=== PATIENT | female | born 2000 | race Two or more races ===

== ENCOUNTER 2023-09-11 08:12 | Emergency (ER) | payer BC ==
--- OUTSIDE RECORDS SUMMARY | 2023-09-11 08:15 | XMS REPORT | Continuity of Care Document ---
Author Name Unknown Address [address] [facility] [address] [place] [address] [facility] Address [address] [facility] [address] [facility] 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 Name Role Phone Kayden Hoover Attending Clinician Unavailable Nia Muñiz Attending Clinician Unavailable Mini Hampton Attending Clinician Unavailable Payers Payer Name Policy Type Policy Number Effective Date Expirati on Date Source Ambetter from [facility] [id number] 2020 00:00:00 [facility] Ambetter from [facility] [id number] 2020 00:00:00 [facility] Problems Condition Name Condition Details Condition Category Status Onset Date Resolution Date Last Treatment Date Treating Clinician Comments Source [id number] Enlarged tonsils Problem Active [facility] Mixed anxiety and depressive disorder Depression with anxiety Problem Active [facility] Bipolar disorder Bipolar disorder Problem Active [facility] [id number] Oral contracept parveen pill surveillan ce Problem Active [facility] Social History Social Habit Start Date Stop Date Quantity Comments Source History of Tobacco Use Current Smoker [facility] Sex Assigned At [facility] Smoking Status Start Date Stop Date Source Current Smoker 2021-06-23 00:00:00 [facility] Medications Ordered Medication Name Filled Medication Name Start Date Stop Date Current Medication? Ordering Clinician Indication Dosage Frequency Signature (SIG) Comments Components Source Benzonatate 200 MG Benzonatate 200 MG 06-23 00:00: 00 07-07 00:00 :00 No 1{capsu le_as_n eeded} Benzonatat e 200 MG Azithromyci n 250 MG Azithromyci n 250 MG 06-23 00:00: 00 06-28 00:00 :00 No QD Azithromyc in 250 MG predniSONE 20 MG predniSONE 20 MG 2 00:00: 00 06-28 00:00 :00 No QD predniSONE 20 MG Neomycin-Po lymyxin-HC 3.5-46833-0 Neomycin-Po lymyxin-HC 3.5-38251-7 2 00:00: 00 No 4{drops _into_a ffected _ear} TID Neomycin-P olymyxin-H C 3.5-26957- 1 Neomycin-Po lymyxin-HC 3.5-33490-8 Neomycin-Po lymyxin-HC 3.5-13384-9 2- 00:00: 00 No 4{drops _into_a ffected _ear} TID Neomycin-P olymyxin-H C 3.5-66616- 1 Singulair 10 MG Singulair 10 MG 2- 00:00: 00 No 1{table t} QD Singulair 10 MG Fluticasone Propionate 50 MCG/ACT Fluticasone Propionate 50 MCG/ACT 2- 00:00: 00 No 2{spray s_in_ea ch_nost ril} BID Fluticason e Propionate 50 MCG/ACT Singulair 10 MG Singulair 10 MG 2- 00:00: 00 No 1{table t} QD Singulair 10 MG Fluticasone Propionate 50 MCG/ACT Fluticasone Propionate 50 MCG/ACT 2- 00:00: 00 No 2{spray s_in_ea ch_nost ril} BID Fluticason e Propionate 50 MCG/ACT Depo-Complaint Supervisor a (Medroxypro gesterone ac) Depo-Complaint Supervisor a (Medroxypro gesterone ac) 2019-04 00:00: 00 No [facility] Depo-Complaint Supervisor a (Medroxypro gesterone ac) Depo-Complaint Supervisor a (Medroxypro gesterone ac) 2019-04 00:00: 00 No [facility] Lessina Lessina 07-20 00:00: 00 Yes Mini Millender 1 tablet [facility] Mini Millender not defined [facility] No [facility] Depo-Complaint Supervisor a 150 MG/ML Depo-Complaint Supervisor a 150 MG/ML No 1{ml} Depo-Prove ra 150 MG/ML Ondansetron HCl 4 MG Ondansetron HCl 4 MG No 1{table t} Ondansetro n HCl 4 MG Lessina 0.1-20 MG-MCG Lessina 0.1-20 MG-MCG No 1{table t} QD Lessina 0.1-20 MG-MCG Latuda Latuda No Latuda Depo-Complaint Supervisor a 150 MG/ML Depo-Complaint Supervisor a 150 MG/ML No 1{ml} Depo-Prove ra 150 MG/ML Lessina 0.1-20 MG-MCG Lessina 0.1-20 MG-MCG No 1{table t} QD Lessina 0.1-20 MG-MCG Ondansetron HCl 4 MG Ondansetron HCl 4 MG No 1{table t} Ondansetro n HCl 4 MG Vital Signs Vital Name Observation Time Observation Value Comments S ource height 2021-06-23 08:50:00 67 [in_i] Commo n [facility] weight 2021-06-23 08:50:00 116 [lb_av] Comm on [facility] temperature 2021-06-23 08:50:00 98.3 [degF] Com mon [facility] bmi 2021-06-23 08:50:00 18.17 kg/m2 Comm on [facility] respiratory rate 2021-06-23 08:50:00 17 /min [facility] height 2021-01-20 09:40:00 67 [in_i] Commo n [facility] weight 2021-01-20 09:40:00 105 [lb_av] Comm on [facility] temperature 2021-01-20 09:40:00 97 [degF] Comm on [facility] bmi 2021-01-20 09:40:00 16.44 kg/m2 Comm on [facility] height 2020-12-30 11:00:00 67 [in_i] Commo n [facility] weight 2020-12-30 11:00:00 105.3 [lb_av] Co mmon [facility] temperature 2020-12-30 11:00:00 98.3 [degF] Com mon [facility] bmi 2020-12-30 11:00:00 16.49 kg/m2 Comm on [facility] oximetry 2020-12-30 11:00:00 95 % Commo n [facility] respiratory rate 2020-12-30 11:00:00 16 /min [facility] blood pressure systolic 2020-12-30 11:00:00 109 mm[Hg] [facility] blood pressure diastolic 2020-12-30 11:00:00 70 mm[Hg] [facility] Encounters Start Date/Time End Date/Time Encounter Type Admission Type Attending Clinicians Care Facility Care Department Encounter ID Source 2022-12-25 08:33:00 [id number] [facility] 2021-06-28 08:44:01 [facility] [id number] [facility] 2021-06-27 16:14:01 [facility] [id number] [facility] 2021-06-21 15:49:01 [facility] [id number] [facility] 2021-05-25 13:45:33 Outpatient Kayden Hoover [facility] [id number] [facility] 2021-05-25 13:40:43 Outpatient [facility] [id number] [facility] 2021-05-25 12:32:13 Outpatient Nia Muñiz [facility] [id number] [facility] 2021-05-25 12:03:58 Outpatient Mary Carmen Muñizli [facility] [id number] [facility] 2021-05-25 12:03:13 Outpatient Nia Muñiz [facility] [id number] [facility] 2021-05-25 12:02:39 Outpatient Nia Muñiz [facility] [id number] [facility] 2021-05-25 11:25:59 Outpatient Mini Hampton [facility] [id number] [facility] 2021-05-25 11:15:10 Outpatient Mini Hampton [facility] [id number] [facility] 2022-12-25 00:00:00 2022-12-25 00:00:00 (TEL) [facility] [id number] [facility] 2021-06-27 00:00:00 2021-06-27 00:00:00 (TEL) [facility] [id number] [facility] 2021-06-23 00:00:00 2021-06-23 00:00:00 OFFICE VISIT EST PT LEVEL 3 [facility] [id number] [facility] 2021-06-21 00:00:00 2021-06-21 00:00:00 (TEL) [facility] [id number] [facility] 2021-01-20 00:00:00 2021-01-20 00:00:00 OFFICE VISIT EST PT LEVEL 3 [facility] [id number] [facility] 2020-12-30 00:00:00 2020-12-30 00:00:00 PREV VISIT EST AGE 18-39 [facility] [id number] [facility] 2020-06-22 00:00:00 2020-06-22 00:00:00 Outpatient [facility] [id number] [facility] 2020-03-18 00:00:00 2020-03-18 00:00:00 Outpatient [facility] [id number] [facility] 2020-03-10 00:00:00 2020-03-10 00:00:00 Outpatient [facility] [id number] [facility] 2020-01-30 00:00:00 2020-01-30 00:00:00 Outpatient [facility] [id number] [facility] 2019-10-09 08:00:00 2019-10-09 08:00:00 Outpatient Tate morrison [facility] [id number] [facility]
[2023-09-11 08:43] LABS: Absolute Lymphocytes (CBC) 1.7 K/uL (0.7-4.9); Absolute Monocytes 0.6 K/uL (0.1-1.3); Absolute Neutrophil 2.7 K/uL (1.8-8.0); Basophils % 0.7 % (0-1.3); Hematocrit 43.1 % (36.0-45.0); Lymphocytes % 33.9 % (15.3-44.8); MCHC 32.6 g/dL (32.0-36.0); MCV 89.2 fL (80-100); MPV 8.3 fL (7.6-11.3); Monocytes % 11.8 % (3.3-12.3); Neutrophils % 52.6 % (41.7-73.7); Nucleated Red Blood Cells % 0.1 % (0-0); Platelets 272 thou/uL (152-406); RBC Red Blood Cell Count 4.83 M/uL (3.86-4.86); Red Cell Distribution Width 12.6 % (12.1-15.2)
[2023-09-11 09:13] LABS: Anion Gap 5.7 mEq/L (5.0-15.0); Potassium 3.7 mEq/L (3.5-5.1)
--- NOTE | 2023-09-11 10:05 | RAD REPORT ---
EXAM DESCRIPTION: US - Transvaginal OB - 09/11/2023 9:52 am CLINICAL HISTORY: with vaginal bleeding COMPARISON: None. FINDINGS: The uterus measures 7 x 3 x 4 centimeters. The endometrial stripe measures 9 millimeters. A gestational sac is not seen. Ovaries are normal in size and echotexture.. The right and left adnexa unremarkable No significant free fluid IMPRESSION: Nonvisualization of a gestational sac within the endometrium. These findings could represent an early intrauterine in which the gestational sac is not se en. and even an ectopic can also result in this appearance. This all should be cor related clinically and with serial beta HCG levels. Followup endovaginal sonogram in 1 week recommend ed
[2023-09-11 10:21] LABS: Specific Gravity 1.023 (1.005-1.030); Sqamous Epithelial <5 /HPF (None Seen); Urine Bacteria None Seen /HPF (<20); Urine Bilirubin NEGATIVE (Negative); Urine Blood 3+ (OVER) (Negative); Urine Clarity Extremely Turbid (Clear); Urine Color Yellow (Yellow); Urine Culture Reflex Order NOT NEEDED; Urine Glucose NEGATIVE (Negative); Urine Ketones 1+ (Negative); Urine Microscopic Reflex YN ORDER UMIC; Urine Mucus 3+ /HPF (None Seen); Urine Nitrite NEGATIVE (Negative); Urine Protein TRACE (Negative); Urine RBC >50 /HPF (None Seen); Urine Urobilinogen Normal (Normal); Urine WBC <5 /HPF (<5)
--- NOTE | 2023-09-11 10:29 | EDPHYS ---
Physician Documentation [facility] Name: Leo Barrios Age: 23 yrs Sex: Female : 2000 Arrival Date: 09/11/2023 Time: 08:12 Bed 2 Private MD: ED Physician Addison Burgos HPI: 09/10 09:25 This 23 yrs old Female presents to ER via Ambulatory with complaints of Vaginal rn Bleeding, + Preg <12wks, Abdominal Cramping, Back Pain. 09:25 The patient presents to the emergency department with abdominal pain, of the suprapubic rn area, that started yesterday, vaginal bleeding, that is light. The estimated gestational age is 4 weeks. course: care: none, Ultrasound: the patient has not had an ultrasound. Previous pregnancies: in previous pregnancies patient has had. The patient has not experienced similar symptoms in the past. Patient reports recent positive urinary test. 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 That began yesterday. Associated with lower abdominal cramping. Has been once before and had elective . Patient reports LMP 1 month ago. Unknown blood type. Historical: - Allergies: 08:17 No Known Allergies; iw - Home Meds: 08:17 None [Active]; iw - PMHx: 08:17 None; iw - PSHx: 08:17 None; iw - Immunization history:: Adult Immunizations not up to date. - Infectious Disease History:: Denies. - Social history:: Smoking status: Reported history of juuling and/or vaping. Patient/guardian denies using tobacco, Stopped _ months ago 1. - Family history:: not pertinent. - Hospitalizations: : No recent hospitalization is reported. ROS: 09:25 Constitutional: Negative for fever, chills, and weight loss, Respiratory: Negative for rn shortness of breath Abdomen/GI: Positive for abdominal cramping : Positive for vaginal bleeding Neuro: Negative for headache, weakness, numbness, tingling, and seizure, Exam: 09:25 Constitutional: This is a well developed, well nourished patient who is awake, alert, rn and in no acute distress. Cardiovascular: Regular rate and rhythm. No pulse deficits. Abdomen/GI: Soft, nontender Neuro: Awake and alert, GCS 15 Vital Signs: 08:17 BP 116 / 72; Pulse 77; Resp 16; Temp 98; Pulse Ox 99% ; Weight 49.9 kg; Height 5 ft. 8 iw in. ; 10:23 BP 115 / 73; Pulse 80; Resp 16; Pulse Ox 99% ; ko1 10:33 BP 115 / 64; Pulse 78; Resp 16; Pulse Ox 99% ; ko1 08:17 Body Mass Index 16.73 (49.90 kg, 172.72 cm) iw MDM: 08:18 Patient medically screened. rn 10:28 Differential diagnosis: threatened Ab, ectopic . Data reviewed: vital signs, rn nurses notes, lab test result(s), radiologic studies, ultrasound, and as a result, I will discharge patient. Counseling: I had a detailed discussion with the patient and/or guardian regarding the historical points, exam findings, and any diagnostic results supporting the discharge/admit diagnosis, lab results, radiology results, the need for outpatient follow up, to return to the emergency department if symptoms worsen or persist or if there are any questions or concerns that arise at home. Special discussion: I discussed with the patient/guardian in detail that at this point there is no indication for admission to the hospital. It is understood, however, that if the symptoms persist or worsen the patient needs to return immediately for re-evaluation. Based on the history and exam findings, there is no indication for further emergent testing or inpatient evaluation. I discussed with the patient/guardian the need to see the OB Gyne specialist for further evaluation of the symptoms. ED course: Ultrasound does not show gestational sac but also negative for ectopic at this time. Beta hCG only 31, patient also very early in her . Light vaginal bleeding and normal H\T\H. May be positive. Urine negative. Will discharge home with return precautions and needs repeat beta in 48 hours.. 09/10 08:19 Order name: Abo/rh Typing; Complete Time: 09:39 rn 09/10 08:19 Order name: Basic Metabolic Panel; Complete Time: 09:39 rn 09/10 08:19 Order name: CBC with Diff; Complete Time: 09:39 rn 09/10 08:19 Order name: Quantitative Hcg; Complete Time: 09:39 09/10 08:19 Order name: Urinalysis w/ reflexes; Complete Time: 10:21 rn 09/10 08:19 Order name: US Transvaginal Ob; Complete Time: 10:09 rn 09/10 08:19 Order name: IV Saline Lock; Complete Time: 08:33 rn 09/10 08:19 Order name: Labs collected and sent; Complete Time: 08:33 rn 09/10 08:19 Order name: NPO; Complete Time: 08:27 rn Administered Medications: No medications were administered Disposition Summary: 09/11/23 10:29 Discharge Ordered Notes: Location: Home rn Problem: new rn Symptoms: are unchanged rn Condition: Stable rn Diagnosis - Threatened rn Followup: rn - With: Private Physician - When: 48 Hours - Reason: Recheck today's complaints, Repeat Beta-HCG (48 Hours), Re-evaluation by your physician Discharge Instructions: - Discharge Summary Sheet rn - Threatened Miscarriage rn - Vaginal Bleeding During , First Trimester rn Forms: - Medication Reconciliation Form rn - Antibiotic harness puller - Prescription Opioid Use rn - Patient Portal Instructions rn - Leadership Thank You Letter rn Signatures: Dispatcher [employer] Ana Miranda RN RN Addison Villeda MD MD rn labor delivery: (The following items were deleted from the chart) 09:27 09:25 Constitutional: Negative for fever, chills, and weight loss, Abdomen/GI: Positive rn for abdominal cramping : Positive for vaginal bleeding rn
--- NOTE | 2023-09-11 10:29 | ER ---
Nurse's Notes [facility] Name: Leo Barrios Age: 23 yrs Sex: Female : 2000 Arrival Date: 09/11/2023 Time: 08:12 Bed 2 Private MD: Diagnosis: Threatened Presentation: 09/10 08:18 Chief complaint: Patient states: vaginal bleeding and cramping started last night , is iw approx 3 weeks , LMP beginning of July 30, UPT + at home, G2, P1. Coronavirus screen: At this time, the client does not indicate any symptoms associated with coronavirus-19. Ebola Screen: No symptoms or risks identified at this time. Initial Sepsis Screen: Does the patient meet any 2 criteria? No. Patient's initial sepsis screen is negative. Does the patient have a suspected source of infection? No. Patient's initial sepsis screen is negative. Risk Assessment: Do you want to hurt yourself or someone else? Patient reports no desire to harm self or others. Onset of symptoms was September 10, 2023. 08:18 Method Of Arrival: Ambulatory iw 08:18 Acuity: CARLO 3 iw Historical: - Allergies: 08:17 No Known Allergies; iw - Home Meds: 08:17 None [Active]; iw - PMHx: 08:17 None; iw - PSHx: 08:17 None; iw - Immunization history:: Adult Immunizations not up to date. - Infectious Disease History:: Denies. - Social history:: Smoking status: Reported history of juuling and/or vaping. Patient/guardian denies using tobacco, Stopped _ months ago 1. - Family history:: not pertinent. - Hospitalizations: : No recent hospitalization is reported. Screenin:22 [facility] ED Fall Risk Assessment (Adult) History of falling in the last 3 months, ko1 including since admission No falls in past 3 months (0 pts) Confusion or Disorientation No (0 pts) Intoxicated or Sedated No (0 pts) Impaired Gait No (0 pts) Mobility Assist Device Used No (0 pt) Altered Elimination No (0 pt) Score/Fall Risk Level 0 - 2 = Low Risk Oriented to surroundings, Maintained a safe environment, Educated pt \T\ family on fall prevention, incl call for assistance when getting out of bed, Assessed \T\ reinforced patient's understanding of fall precautions, Provided non-skid footwear, Hourly rounding (assess needs \T\ fall precautionary measures) done, Used ambulatory aids as needed (educated on \T\ assisted with), Used gait belt as appropriate. Abuse screen: Denies threats or abuse. Denies injuries from another. Nutritional screening: No deficits noted. Tuberculosis screening: No symptoms or risk factors identified. Assessment: 09:22 Obstetrical Assessment: General assessment: awake and alert, skin warm and dry. ko1 General: Appears in no apparent distress. uncomfortable. Pain: Complains of pain in abdomen. Neuro: No deficits noted. Cardiovascular: No deficits noted. Respiratory: No deficits noted. GI: No deficits noted. : No deficits noted. EENT: No deficits noted. Derm: No deficits noted. Musculoskeletal: No deficits noted. 10:33 Reassessment: Patient appears in no apparent distress at this time. No changes from ko1 previously documented assessment. Patient and/or family updated on plan of care and expected duration. Pain level reassessed. Patient is alert, oriented x 3, equal unlabored respirations, skin warm/dry/pink. Vital Signs: 08:17 BP 116 / 72; Pulse 77; Resp 16; Temp 98; Pulse Ox 99% ; Weight 49.9 kg; Height 5 ft. 8 iw in. ; 10:23 BP 115 / 73; Pulse 80; Resp 16; Pulse Ox 99% ; ko1 10:33 BP 115 / 64; Pulse 78; Resp 16; Pulse Ox 99% ; ko1 08:17 Body Mass Index 16.73 (49.90 kg, 172.72 cm) ED Course: 08:15 Patient arrived in ED. mr 08:18 Addison Burgos MD is Attending Physician. rn 08:19 Triage completed. iw 08:21 Radiology exam delayed due to test not completed at this time. aa4 08:26 Mirna Esposito, JOSE is Primary Nurse. ko1 08:33 Abo/rh Typing Sent. bc6 08:33 Basic Metabolic Panel Sent. bc6 08:33 CBC with Diff Sent. bc6 08:33 Quantitative Hcg Sent. bc6 08:33 Initial lab(s) drawn, by co, sent to lab. Inserted saline lock: 20 gauge in left bc6 antecubital area, using aseptic technique. Blood collected. 09:22 Patient has correct armband on for positive identification. Placed in gown. Bed in low ko1 position. Call light in reach. Side rails up X2. Pulse ox on. NIBP on. Door closed. Noise minimized. Lights dimmed. Warm blanket given. :29 Transvaginal Ob In Process Unspecified. EDMS 10:00 Urine collected: clean catch specimen, bing colored. ko1 10: Urinalysis w/ reflexes Sent. ko1 10: No provider procedures requiring assistance completed. ko1 : Provided Education on: labs. ko1 10:33 IV discontinued, intact, bleeding controlled, No redness/swelling at site. Pressure ko1 dressing applied. Administered Medications: No medications were administered Medication: : VIS not applicable for this client. ko1 Outcome: Discharge ordered by . rn : Discharged to home ambulatory, with family, ko1 : Condition: stable :33 Discharge instructions given to patient, Instructed on discharge instructions, follow up and referral plans. Demonstrated understanding of instructions, follow-up care, 10:38 Patient left the ED. ko1 Signatures: Dispatcher [employer] EDPR VegasRosa berrios, Reg Reg mr Ana Coles, RN RN iw Raven Quarles aa4 Addison Burgos MD MD rn Oliver, Kathy, RN RN ko1 Lashay Gandhi bc6 Corrections: (The following items were deleted from the chart) 08:18 08:17 Pulse 77bpm; Resp 16bpm; Pulse Ox 99%; Temp 98F; 49.9 kg; Height 5 ft. 8 in.; iw BMI: 16.7; iw
[2023-09-11 19:00] VITALS: BP 115/64; TEMP 98; O2SAT 99
== END 2023-09-11 10:38 | disposition home or self-care (01) ==
LOC: ER 08:12
DX: O20.0 Threatened abortion (principal); Z3A.00 Weeks of gestation of pregnancy not specified
CPT/HCPCS: 36415; 76817; 80048; 81001; 84702; 85025; 86900; 86901; 99284

== ENCOUNTER 2024-02-02 12:29 | Emergency (ER) | payer BC ==
--- OUTSIDE RECORDS SUMMARY | 2024-02-02 12:32 | XMS REPORT | Continuity of Care Document ---
Author Name Unknown Address [address] [facility] [place] [address] [facility] [address] [facility] [address] [place] [address] Care Team Providers Care Associate Drafter Name Role Phone Kayden Hoover Attending Clinician Unavailable Nia Muñiz Attending Clinician Unavailable Mini Hampton Attending Clinician Unavailable Payers Payer Name Policy Type Policy Number Effective Date Expirati on Date Source Ambetter from [facility] [id number] 2020 00:00:00 [facility] Ambetter from [facility] [id number] 2020 00:00:00 [facility] Problems Condition Name Condition Details Condition Category Status Onset Date Resolution Date Last Treatment Date Treating Clinician Comments Source [id number] Enlarged tonsils Problem Active [facility] Mixed anxiety and depressive disorder Depression with anxiety Problem Active [facility] Bipolar disorder Bipolar disorder Problem Active [facility] [id number] Oral contracept parveen pill surveillan ce Problem Active [facility] Social History Social Habit Start Date Stop Date Quantity Comments Source History of Tobacco Use Current Smoker [facility] Sex Assigned At [facility] Smoking Status Start Date Stop Date Source Current Smoker 2021-06-23 00:00:00 [facility] Medications Ordered Medication Name Filled Medication Name [...] MG predniSONE 20 MG predniSONE 20 MG 06-23 00:00: 00 06-28 00:00 :00 No QD predniSONE 20 MG Neomycin-Po lymyxin-HC 3.5-28747-3 Neomycin-Po lymyxin-HC 3.5-81310-5 06-22 00:00: 00 No 4{drops _into_a ffected _ear} TID Neomycin-P olymyxin-H C 3.5-09936- 1 Neomycin-Po lymyxin-HC 3.5-51908-3 Neomycin-Po lymyxin-HC 3.5-71456-5 06-22 00:00: 00 No 4{drops _into_a ffected _ear} TID Neomycin-P olymyxin-H C 3.5-21563- 1 Singulair 10 MG Singulair 10 MG 06-22 00:00: 00 No 1{table t} QD Singulair 10 MG Fluticasone Propionate 50 MCG/ACT Fluticasone Propionate 50 MCG/ACT 06-22 00:00: 00 No 2{spray s_in_ea ch_nost ril} BID Fluticason e Propionate 50 MCG/ACT Singulair 10 MG Singulair 10 MG 06-22 00:00: 00 No 1{table t} QD Singulair 10 MG Fluticasone Propionate 50 MCG/ACT Fluticasone Propionate 50 MCG/ACT 06-22 00:00: 00 No 2{spray s_in_ea ch_nost ril} BID Fluticason e Propionate 50 MCG/ACT [employer] 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 (Medroxypro gesterone ac) Depo-Design 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 (Medroxypro gesterone ac) 2019-04 00:00: 00 No [facility] Dep[employer] 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 (Medroxypro gesterone ac) Dep[employer] 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 (Medroxypro gesterone ac) 2019-04 00:00: 00 No [facility] Lessina Lessina 07-20 00:00: 00 Yes Mini Millender 1 tablet [facility] Yes Mini Millender not defined [facility] Latuda [facility] No Latuda Dep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 150 MG/ML Dep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 150 MG/ML No 1{ml} Depo-Prove ra 150 MG/ML Ondansetron HCl 4 MG Ondansetron HCl 4 MG No 1{table t} Ondansetro n HCl 4 MG Lessina 0.1-20 MG-MCG Lessina 0.1-20 MG-MCG No 1{table t} QD Lessina 0.1-20 MG-MCG Latuda Latuda No Latuda 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 150 MG/ML Dep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 150 MG/ML No 1{ml} Depo-Prove ra 150 MG/ML Lessina 0.1-20 MG-MCG Lessina 0.1-20 MG-MCG No 1{table t} QD Lessina 0.1-20 MG-MCG Ondansetron HCl 4 MG Ondansetron HCl 4 MG No 1{table t} Ondansetro n HCl 4 MG Vital Signs Vital Name Observation Time Observation Value Comments S ource height 2021-06-23 08:50:00 67 [in_i] Commo n [facility] weight 2021-06-23 08:50:00 116 [lb_av] Comm on [facility] temperature 2021-06-23 08:50:00 98.3 [degF] Com mon [facility] bmi 2021-06-23 08:50:00 18.17 kg/m2 Comm on [facility] respiratory rate 2021-06-23 08:50:00 17 /min [facility] height 2021-01-20 09:40:00 67 [in_i] Commo n [facility] weight 2021-01-20 09:40:00 105 [lb_av] Comm on [facility] temperature 2021-01-20 09:40:00 97 [degF] Comm on [facility] bmi 2021-01-20 09:40:00 16.44 kg/m2 Comm on [facility] height 2020-12-30 11:00:00 67 [in_i] Commo n [facility] weight 2020-12-30 11:00:00 105.3 [lb_av] Co mmon [facility] temperature 2020-12-30 11:00:00 98.3 [degF] Com mon [facility] bmi 2020-12-30 11:00:00 16.49 kg/m2 Comm on [facility] oximetry 2020-12-30 11:00:00 95 % Commo n [facility] respiratory rate 2020-12-30 11:00:00 16 /min [facility] blood pressure systolic 2020-12-30 11:00:00 109 mm[Hg] [facility] blood pressure diastolic 2020-12-30 11:00:00 70 mm[Hg] [facility] Encounters Start Date/Time End Date/Time Encounter Type Admission Type Attending Clinicians Care Facility Care Department Encounter ID Source 2022-12-25 08:33[id number] 2021-06-28 08:44:01 Outpatient Sandrine Hooverh [facility] [id number] [facility] 2021-06-27 16:14:01 Outpatient Sandrine Hooverh [facility] [id number] [facility] 2021-06-21 15:49:01 Outpatient Kayden Hoover [facility] [id number] [facility] 2021-05-25 13:45:33 Outpatient Kayden Hoover [facility] [id number] [facility] 2021-05-25 13:40:43 Outpatient [facility] [id number] [facility] 2021-05-25 12:32:13 Outpatient Nia Muñiz [facility] [id number] [facility] 2021-05-25 12:03:58 Outpatient Mary Carmen Muñizli [facility] [id number] [facility] 2021-05-25 12:03:13 Outpatient Nia Muñiz [facility] [id number] [facility] 2021-05-25 12:02:39 Outpatient Nia Muñiz [facility] [id number] [facility] 2021-05-25 11:25:59 Outpatient Mini Hampton [facility] [id number] [facility] 2021-05-25 11:15:10 Outpatient Mini Hampton [facility] [id number] [facility] 2022-12-25 00:00:00 2022-12-25 00:00:00 (TEL) [facility] [id number] [facility] 2021-06-27 00:00:00 2021-06-27 00:00:00 (TEL) [facility] [id number] [facility] 2021-06-23 00:00:00 2021-06-23 00:00:00 OFFICE VISIT EST PT LEVEL 3 [facility] [id number] [facility] 2021-06-21 00:00:00 2021-06-21 00:00:00 (TEL) [facility] [id number] [facility] 2021-01-20 00:00:00 2021-01-20 00:00:00 OFFICE VISIT EST PT LEVEL 3 [facility] [id number] [facility] 2020-12-30 00:00:00 2020-12-30 00:00:00 PREV VISIT EST AGE 18-39 [facility] [id number] [facility] 2020-06-22 00:00:00 2020-06-22 00:00:00 Outpatient [facility] [id number] [facility] 2020-03-18 00:00:00 2020-03-18 00:00:00 Outpatient [facility] [id number] [facility] 2020-03-10 00:00:00 2020-03-10 00:00:00 Outpatient [facility] [id number] [facility] 2020-01-30 00:00:00 2020-01-30 00:00:00 Outpatient [facility] [id number] [facility] 2019-10-09 08:00:00 2019-10-09 08:00:00 Outpatient Tate morrison [facility] Harry [facility] [id number] [facility]
--- NOTE | 2024-02-02 14:05 | EDPHYS ---
Physician Documentation [facility] Name: Leo Barrios Age: 23 yrs Sex: Female : 2000 Arrival Date: 02/02/2024 Time: 12:29 Bed 6 Private MD: ED Physician Harris Muller HPI: 02/01 13:23 This 23 yrs old Female presents to ER via Ambulatory with complaints of dr5 test. 13:23 Pt reports she had a urine home test that was negative and requesting a blood dr5 test. Pt denies vaginal bleeding, abdominal pain, vaginal discharge or odor, or fever.. 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 - Infectious Disease History:: Denies. - Social history:: Smoking status: Patient denies any tobacco usage or history of. ROS: 13:23 Constitutional: as per hpi dr5 Exam: 13:23 Constitutional: This is a well developed, well nourished patient who is awake, alert, dr5 and in no acute distress. Head/Face: Normocephalic, atraumatic. Eyes: Pupils equal round and reactive to light, extra-ocular motions intact. Lids and lashes normal. Conjunctiva and sclera are non-icteric and not injected. Cornea within normal limits. Periorbital areas with no swelling, redness, or edema. ENT: Nares patent. No nasal discharge, no septal abnormalities noted. Tympanic membranes are normal and external auditory canals are clear. Oropharynx with no redness, swelling, or masses, exudates, or evidence of obstruction, uvula midline. Mucous membranes moist. Chest/axilla: Normal chest wall appearance and motion. Nontender with no deformity. No lesions are appreciated. Cardiovascular: Regular rate and rhythm with a normal S1 and S2. Normal PMI, no JVD. No pulse deficits. Respiratory: Lungs have equal breath sounds bilaterally, clear to auscultation. No rales, rhonchi or wheezes noted. No increased work of breathing, no retractions or nasal flaring. Abdomen/GI: Soft, non-tender, non-distended Skin: Warm, dry with normal turgor. Normal color with no rashes, no lesions, and no evidence of cellulitis. MS/ Extremity: Pulses equal, no cyanosis. Neurovascular intact. Full, normal range of motion. Neuro: Awake and alert, GCS 15, oriented to person, place, time, and situation. Cranial nerves II-XII grossly intact. Motor strength 5/5 in all extremities. Sensory grossly intact. Cerebellar exam normal. Normal gait. Vital Signs: 12:48 BP 135 / 81; Pulse 80; Resp 16; Pulse Ox 98% on R/A; Weight 49.9 kg; Height 5 ft. 8 in. iw ; 14:08 BP 129 / 78; Pulse 84; Resp 14; Pulse Ox 99% ; ko1 12:48 Body Mass Index 16.73 (49.90 kg, 172.72 cm) iw MDM: 12:34 Patient medically screened. dr5 14:06 Differential diagnosis: , Ectopic , Encounter for test. dr5 Data reviewed: vital signs, nurses notes. Consideration of Admission/Observation Escalation of care including admission/observation considered. Admission / Transfer considered for ectopic . Test considered but Not performed: Ultrasound US if HCG was +. Care significantly affected by the following Social Determinants of Health: Poor access to healthcare and/or lack of insurance. Counseling: I had a detailed discussion with the patient and/or guardian regarding the historical points, exam findings, and any diagnostic results supporting the discharge/admit diagnosis, the presence of at least one elevated blood pressure reading (>120/80) during this emergency department visit, lab results, the need for outpatient follow up, for definitive care, a family practitioner, an OB/Gyne specialist. ED course: Pt denies any symptoms at this time. Gave patient copy of negative HCG result. Pt feels better knowing that she isn't . 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 02/01 13:09 Order name: HCG-Quantitative; Complete Time: 14:02 dr5 Administered Medications: No medications were administered Disposition: 14:11 Co-signature as Attending Physician, Harris Muller MD I reviewed the patient's care rt provided by the Advanced Practice Provider and agree with the diagnosis and treatment plan. Disposition Summary: 02/02/24 14:05 Discharge Ordered Notes: Location: Home dr5 Condition: Stable dr5 Diagnosis - Encounter for test, result negative dr5 Followup: dr5 - With: Emergency Department - When: As needed - Reason: Worsening of condition Followup: dr5 - With: Private Physician - When: 2 - 3 days - Reason: Recheck today's complaints, Continuance of care, Re-evaluation by your physician Discharge Instructions: - Discharge Summary Sheet dr5 - Home Test Information dr5 Forms: - Medication Reconciliation Form dr5 - Patient Portal Instructions dr5 - Leadership Thank You Letter dr5 Signatures: Dispatcher [employer] Ana Miarnda, JOSE RN iw Harris Muller MD MD rt Josh Ruelas, MARKETING TRAINEE-C MARKETING TRAINEE-Cdr5
--- NOTE | 2024-02-02 14:05 | ER ---
Nurse's Notes [facility] Name: Leo Barrios Age: 23 yrs Sex: Female : 2000 Arrival Date: 02/02/2024 Time: 12:29 Bed 6 Private MD: Diagnosis: Encounter for test, result negative Presentation: 02/01 12:48 Chief complaint: Patient states: missed my period X 2 months , LMP was 8-24, home iw test was negative. Coronavirus screen: At this time, the client does not indicate any symptoms associated with coronavirus-19. Ebola Screen: No symptoms or risks identified at this time. Initial Sepsis Screen: Does the patient meet any 2 criteria? No. Patient's initial sepsis screen is negative. Does the patient have a suspected source of infection? No. Patient's initial sepsis screen is negative. Risk Assessment: Do you want to hurt yourself or someone else? Patient reports no desire to harm self or others. Onset of symptoms was February 02, 2024. 12:48 Method Of Arrival: Ambulatory iw 12:48 Acuity: CARLO 3 iw Triage Assessment: 14:09 General: Appears in no apparent distress. Behavior is calm, cooperative, appropriate ko1 for age. 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 - Infectious Disease History:: Denies. - Social history:: Smoking status: Patient denies any tobacco usage or history of. Screenin:29 [facility] ED Fall Risk Assessment (Adult) History of falling in the last 3 months, ko1 including since admission No falls in past 3 months (0 pts) Confusion or Disorientation No (0 pts) Intoxicated or Sedated No (0 pts) Impaired Gait No (0 pts) Mobility Assist Device Used No (0 pt) Altered Elimination No (0 pt) Score/Fall Risk Level 0 - 2 = Low Risk Oriented to surroundings, Maintained a safe environment, Educated pt \T\ family on fall prevention, incl call for assistance when getting out of bed, Assessed \T\ reinforced patient's understanding of fall precautions, Provided non-skid footwear, Hourly rounding (assess needs \T\ fall precautionary measures) done. Abuse screen: Denies threats or abuse. Denies injuries from another. Nutritional screening: No deficits noted. Tuberculosis screening: No symptoms or risk factors identified. Assessment: 14:08 Pain: Denies pain. ko1 Vital Signs: 12:48 BP 135 / 81; Pulse 80; Resp 16; Pulse Ox 98% on R/A; Weight 49.9 kg; Height 5 ft. 8 in. iw ; 14:08 BP 129 / 78; Pulse 84; Resp 14; Pulse Ox 99% ; ko1 12:48 Body Mass Index 16.73 (49.90 kg, 172.72 cm) ED Course: 12:31 Patient arrived in ED. mr 12:34 Josh Ruelas FNP-C is PHCP. dr5 12:34 Harris Muller MD is Attending Physician. dr5 12:50 Triage completed. iw 12:50 Arm band placed on. iw 12:53 Tess Torres, JOSE is Primary Nurse. jl7 13:29 Patient has correct armband on for positive identification. Bed in low position. Call ko1 light in reach. Side rails up X 1. Provided Education on: labs. Pulse ox on. NIBP on. Door closed. Noise minimized. Lights dimmed. Pillow given. 13:29 HCG-Quantitative Sent. ko1 13:29 Initial lab(s) drawn, by ED staff, sent to lab. ko1 14:03 ED physician to see patient. ko1 14:03 No provider procedures requiring assistance completed. Patient did not have IV access ko1 during this emergency room visit. Administered Medications: No medications were administered Medication: 14:03 VIS not applicable for this client. ko1 Outcome: 14:05 Discharge ordered by . dr5 14:08 Discharged to home ambulatory, ko1 14:08 Condition: stable 14:08 Discharge instructions given to patient, Instructed on discharge instructions, follow up and referral plans. Demonstrated understanding of instructions, follow-up care, 14:10 Patient left the ED. ko1 Signatures: Rosa Vegas, Reg Reg mr Ana Coles RN JOSE iw Tess Torres RN RN jl7 Mirna Esposito RN RN ko1 Ruelas, Josh, COMMERCIAL INTERN-C COMMERCIAL INTERN-Cdr5
[2024-02-02 14:21] VITALS: BP 129/78; O2SAT 99
== END 2024-02-02 14:10 | disposition home or self-care (01) ==
LOC: ER 12:29
DX: Z32.02 Encounter for pregnancy test, result negative (principal)
CPT/HCPCS: 36415; 84702; 99283